=== PATIENT | male | born 1965 | race Caucasian/White ===

== ENCOUNTER 2022-04-29 05:50 | Day surgery (SDC) | payer MEDICAID ==
[2022-04-28 12:53] LABS: COVID AG,FIA SOURCE NASOPHARYNGEAL
[2022-04-28 13:45] LABS: BASOPHILS % (AUTO) 0.7 % (0.0-2.0); EOSINOPHILS % (AUTO) 4.2 % (1.0-6.0); HEMATOCRIT 31.3 % (41-53); HEMOGLOBIN 9.4 g/dL (13.5-17.5); LYMPHOCYTES # (AUTO) 0.8 K/uL (1.0-4.8); LYMPHOCYTES % (AUTO) 18.6 % (22.0-44.0); MEAN CORPUSCULAR HEMOGLOBIN 20.6 pg (26.0-34.0); MEAN CORPUSCULAR VOLUME 69 fL (80-100); MONOCYTES # (AUTO) 0.6 K/uL (0.1-1.0); MONOCYTES % (AUTO) 12.9 % (2.0-9.0); NEUTROPHILS # (AUTO) 2.8 K/uL (1.8-7.7); NEUTROPHILS % (AUTO) 63.6 % (40.0-70.0); PLATELET COUNT (AUTO) 147 K/uL (150-450); RED BLOOD CELL COUNT(AUTO) 4.55 MIL/uL (4.50-5.90); RED CELL DISTRIBUTION WIDTH 24.5 % (11.5-14.5)
[2022-04-28 13:49] LABS: ANION GAP 10 mmol/L (8-16); CALCIUM, TOTAL 8.7 mg/dL (8.8-10.5); CARBON DIOXIDE 23 mmol/L (22-29); CHLORIDE 108 mmol/L (98-107); CREATININE 0.84 mg/dL (0.60-1.30); GLOMERULAR FILTR. RATE CALC > 60 mL/min (>60); GLUCOSE,RANDOM 117 mg/dL (70-110); POTASSIUM 3.7 mmol/L (3.5-5.1); SODIUM SERUM 141 mmol/L (136-145); UREA NITROGEN, BLOOD 9 mg/dL (7-18)
[2022-04-28 13:51] LABS: INR 1.3 (0.9-1.1); PROTHROMBIN TIME 14.1 SEC (9.4-11.6)
[2022-04-28 13:55] LABS: ALANINE AMINOTRANSFERASE 30 U/L (12-78); ALBUMIN 3.1 g/dL (3.4-5.0); ALKALINE PHOSPHATASE 123 U/L (46-116); ASPARTATE AMINOTRANSFERASE 41 U/L (15-37); BILIRUBIN,TOTAL 1.9 mg/dL (0.1-1.0); TOTAL PROTEIN, SERUM 7.7 g/dL (6.4-8.2)
[2022-04-28 13:59] LABS: % IRON SATURATION 6.9 % (30-44)
[~2022-04-29] VITALS: Ht 177.8 cm; Wt 81.8 kg
[~2022-04-29 05:50] MED LIST: ACAM333T7 PO; DOCU-350 PO; FAMO20TA8 PO; FERR-72 PO; FOLI-130 PO; NALO4SPR3 NASAL; OMEP20CA12 PO; ONDA4TAB96 PO; SODIUM CHLORIDE 0.9% 1,000 ML IV ONE; THIA100T92 PO; TOPI50TA24 PO; TRAZ-252 PO
[2022-04-29] MEDS ORDERED: SODIUM CHLORIDE 0.9% 1,000 ML ONE (06:44)
[2022-04-29] MEDS ORDERED: OXYGEN THERAPY IH SCH (09:30)
[2022-04-29] MEDS ORDERED: ACETAMINOPHEN 1000 MG/ISO-OSM 100 ML IV ONE ×2 (10:00)
[2022-04-29] MEDS ORDERED: LIDOCAINE/PF 2% 5 ML SYRINGE IVP ONE (12:00)
[2022-04-29] MEDS ORDERED: PROPOFOL 1% 20 ML VIAL IVP ONE (12:00)
[2022-04-30 03:07] LABS: HEPATITIS C AB (EIA) <0.1 s/co ratio (0.0-0.9)
== END 2022-04-29 10:35 | disposition home or self-care (01) ==
LOC: SURGERY 05:50
PROVIDERS: ATTEND Specialist
DX: I85.00 Esophageal varices without bleeding (principal); K29.70 Gastritis, unspecified, without bleeding; G89.29 Other chronic pain; Z79.01 Long term (current) use of anticoagulants; Z79.899 Other long term (current) drug therapy; K70.30 Alcoholic cirrhosis of liver without ascites; Z87.891 Personal history of nicotine dependence; Z72.89 Other problems related to lifestyle
CPT/HCPCS: 36415 ×2; 43239; 43244; 80053; 82105; 83540; 83550; 85025; 85610; 85730; 86803; 87426; 88305; C9803; J0131; J2704; J3490; J7030